=== PATIENT | female | born 1950 | race Caucasian/White ===

== ENCOUNTER → 2019-08-17 10:21 | Outpatient (CLI) | payer MEDICARE, SELFPAY ==
--- NOTE | ~2019-08-17 | MM_ITS ---
EXAMINATION: MM screening candido BI w alfonso HISTORY: Screening mammogram TECHNIQUE: Craniocaudal and mediolateral oblique 3-D tomosynthesis images were obtained and synthetic 2-D images were generated. CAD analysis was submitted and interpreted. COMPARISON: No prior mammogram is available for comparison at this institution. BREAST PARENCHYMAL COMPOSITION: There are scattered areas of fibroglandular density. FINDINGS: There is no evidence of suspicious mass, calcification, or architectural distortion to sugg est malignancy in either breast. There has been no suspicious interval change. IMPRESSION: 1. No mammographic evidence of malignancy. 2. Recommend routine screening mammography in one year. BI-RADS Category 1: Negative Reviewed, dictated and finalized at location A.
== END ==
PROVIDERS: PCP Family Medicine Adolescent Medicine; Visit Provider Family Medicine Adolescent Medicine
DX: Z12.31 Encounter for screening mammogram for malignant neoplasm of breast (principal)
CPT/HCPCS: 77063; 77067

== ENCOUNTER → 2021-09-19 09:08 | Outpatient (CLI) | payer MEDICARE, SELFPAY ==
--- NOTE | ~2021-09-19 | US_ITS ---
EXAMINATION: US right upper quadrant EXAM DATE: 09/19/2021 09:32 INDICATION: Hepatic fibrosis TECHNIQUE: Multiple grayscale and Doppler images of the abdomen right upper quadrant were obtained (b y a technologist who performed the scan) and subsequently reviewed. Comparison is made to prior exami nation from 08/10/2016. FINDINGS: The pancreatic head and body are normal in appearance. The pancreatic tail is not visualized. The l iver has mildly heterogeneous echogenicity and contour. There are no focal liver lesions identified. There is no evidence of intrahepatic biliary duct dilation. Portal venous flow was seen in the he patopedal, normal direction and has normal Doppler waveform. No right-sided hydronephrosis. Common bile duct measures 3 mm, which is normal. The gallbladder wall is normal in thickness, with ex pected amount of distention. No sonographic evidence of pericholecystic fluid. There is cholelithia sis. Technologist performing exam reports patient did not demonstrate sonographic Rodriguez's sign. P nat note that this sign is less reliable in patients who have received pain medication. IMPRESSION: 1. Mildly heterogeneous liver echogenicity without focal mass. 2. Cholelithiasis. Reviewed, dictated and finalized at location A.
== END ==
PROVIDERS: PCP Family Medicine Adolescent Medicine
DX: K74.02 Hepatic fibrosis, advanced fibrosis (principal); K80.20 Calculus of gallbladder without cholecystitis without obstruction
CPT/HCPCS: 76705

== ENCOUNTER → 2021-10-25 10:46 | Outpatient (CLI) | payer MEDICARE, SELFPAY ==
--- NOTE | ~2021-10-25 | DEXA_ITS ---
Bone Density Report Name: RAKESH HURT Age: 71 Sex: Female Ethnicity: White Date of : 1950 Indication: osteopenia; monitoring treatment; height loss; history of glucocorticoids; prior fracture; secondary osteoporosis; postmenopausal Referring Provider: SENDY LUNA Study: Bone densitometry was performed. Exam Date: October 25, 2021 Accession number: [id number] Bone Density: Region BMD T-score Z-score Classification AP Spine (L1-L4) 0.875 -1.6 0.5 Osteopenia Femoral Neck (Left) 0.613 -2.1 -0.4 Osteopenia Total Hip (Left) 0.714 -1.9 -0.4 Osteopenia Femoral Neck (Right) 0.611 -2.1 -0.4 Osteopenia Total Hip (Right) 0.687 -2.1 -0.6 Osteopenia Total Hip Mean 0.701 -2.0 -0.5 Osteopenia World Health Organization criteria for BMD impression classify patients as: Normal (T-score at or above -1.0), Osteopenia (T-score between -1.0 and -2.5), or Osteoporosis (T-score at or below -2.5). 10-year Fracture Risk: FRAX not reported because: Prior hip or vertebral fracture Treated for osteoporosis Previous Exams: Region Exam Age BMD T-score BMD Change BMD Change Date g/cm2 vs Baseline vs Previous AP Spine(L1-L4) 10/25/2021 71 0.875 -1.6 0.031* 0.076* 06/19/2018 68 0.799 -2.3 -0.045* -0.045* 10/01/2016 66 0.845 -1.8 Total Hip(Left) 10/25/2021 71 0.714 -1.9 -0.019 0.018 06/19/2018 68 0.697 -2.0 -0.037* -0.037* 10/01/2016 66 0.733 -1.7 Total Hip(Right) 10/25/2021 71 0.687 -2.1 -0.011 0.005 06/19/2018 68 0.682 -2.1 -0.016 -0.016 10/01/2016 66 0.698 -2.0 *Denotes significance at 95% confidence level, LSC for AP Spine = 0.022 g/cm2, LSC for Total Hip = 0.027 g/cm2 Clinical Information Provided by Patient: Have had a previous hip or vertebral fracture Has had a low trauma fracture Smokes Has taken Glucocorticoids Has secondary osteoporosis Is being treated for osteoporosis Has used the following medications: Fosamax (i.e. alendronate), Vitamin D, Calcium, PREDNESONE Patient maximum height was 64 Menopause Age: 47 No regular weight bearing exercise Drinks caffeinated beverages Onset of menses at age 15 Number of children 3 Impression: The patient has low bone mass, based on the Right Total Hip T-score. The patient has risk factors, including: smoking, previous fracture, history of glucocorticoid therapy. No signif
== END ==
PROVIDERS: PCP Family Medicine Adolescent Medicine; Visit Provider Family Medicine Adolescent Medicine
DX: Z78.0 Asymptomatic menopausal state (principal); M85.88 Other specified disorders of bone density and structure, other site; M85.851 Other specified disorders of bone density and structure, right thigh; M85.852 Other specified disorders of bone density and structure, left thigh
CPT/HCPCS: 77080

== ENCOUNTER → 2022-09-27 10:02 | Outpatient (CLI) | payer MEDICARE, SELFPAY ==
--- NOTE | ~2022-09-27 | US_ITS ---
Limited Abdominal Sonogram: Real-time sonographic imaging of the right upper quadrant was performed. Clinical History: Hepatic fibrosis Findings: Possible minimal nodularity liver contour. No mass lesion or biliary dilatation. Main blane l vein demonstrates normal direction of flow. The gallbladder is well distended, and contains echogen ic, shadowing gallstones. No gallbladder wall thickening. The common bile duct measures 3 mm. The vi sualized pancreas, aorta, and IVC are unremarkable. Right kidney measures 9.6 cm in length, without e vidence for hydronephrosis. Impression: Cholelithiasis. Possible minimal nodularity of the liver contour. Correlate for cirrhotic change. Reviewed, dictated and finalized at location M. Impression: Cholelithiasis. Possible minimal nodularity of the liver contour. Correlate for cirrhotic roa e.
== END ==
PROVIDERS: PCP Family Medicine Adolescent Medicine
DX: K74.02 Hepatic fibrosis, advanced fibrosis (principal); K75.4 Autoimmune hepatitis; K80.20 Calculus of gallbladder without cholecystitis without obstruction
CPT/HCPCS: 76705

== ENCOUNTER 2023-07-06 15:48 | Emergency (ER) | payer MEDICARE, SELFPAY ==
--- NOTE | ~2023-07-06 | XR_ITS ---
EXAM: XR hand LT min 3V DATE: 07/06/2023 16:20 HISTORY: fall, pain, deformity of 5TH finger . COMPARISON: None available. FINDINGS: Decreased mineralization. Comminuted intraarticular fracture of the left proximal fifth ph alange, with one half shaft width anterior displacement, 45 degrees posterior angulation, and minimal medial angulation. Comminuted, nondisplaced, intra-articular fracture of the proximal left phalange. No lytic or blastic lesion. Moderate scattered osteoarthritic changes. No erosion or periosteal hopson ge. Mild soft tissue swelling over the fracture sites. IMPRESSION: Comminuted, intra-articular, displaced and angulated fracture of the proximal left fifth phalange. Nondisplaced, comminuted, intra-articular fracture of the proximal left fourth phalange. Reviewed, dictated and finalized at location K. [employer] IMPRESSION: Comminuted, intra-articular, displaced and angulated fracture of the proximal l eft fifth phalange. Nondisplaced, comminuted, intra-articular fracture of the proximal left fourth phalange.
[2023-07-06 16:00] VITALS: BP 158/67; PULSE 70; RESP 16; TEMP 36.2; O2SAT 100
--- NOTE | 2023-07-06 16:06 | ED.UPPEXIN ---
HPI - Extremity Injury (Upper) General Chief Complaint: Extremity Injury, Upper Stated Complaint: Left Finger Injury Source: patient Mode of arrival: ambulatory Limitations: no limitations History of Present Illness HPI narrative: 73-year-old female presenting for complaint of left hand pain after injury today. She states about 2 hours prior to arrival she fell in the grass landing on the left hand. She states the little finger was bent in a flexed position, which she straightened, applied a splint and an ice pack. Also reports right upper inner arm abrasions and right upper eyelid abrasion. Denies LOC, headache, neck pain. She has taken ibuprofen. Related Data Home Medications Medication Instructions Recorded Confirmed calcium carbonate 500 mg calcium 500 mg PO BID 08/14/21 05/21/23 (1,250 mg) chewable tablet (Calcium 500) cholecalciferol (vitamin D3) 125 125 mcg PO DAILY 08/14/21 05/21/23 mcg (5,000 unit) capsule folic acid 1 mg tablet 1 mg PO DAILY 08/14/21 05/21/23 naproxen 250 mg tablet 250 mg PO ONCE PRN 08/14/21 05/21/23 vitamin B complex 1 tablet PO DAILY 08/14/21 05/21/23 mycophenolate mofetil 500 mg tablet 750 mg PO BID 01/23/23 05/21/23 Allergies Allergy/AdvReac Type Severity Reaction Status Date / Time No Known Allergies Allergy Unknown Verified 05/21/23 08:41 Review of Systems Review of Systems: CONSTITUTIONAL: Denies body aches, fever, chills EYES: Denies visual changes ENT: Denies rhinorrhea, epistaxis CARDIOVASCULAR: Denies chest pain, palpitations, or edema. RESPIRATORY: Denies cough or dyspnea. SKIN: reports abrasion to right arm and eye Denies rash, itching MUSCULOSKELETAL: Reports left hand pain Denies back pain, neck pain, or myalgia. NEUROLOGIC: Denies headache, numbness, tingling, or weakness. All systems reviewed & are unremarkable except as noted in HPI and below PMFSH Past Medical History Medical History Abnormal colonoscopy 10/19 Polyp Repeat 10/24 Burst fracture of lumbar vertebra Compression fracture Surgical History Surgical History H/O foot surgery H/O tubal ligation (~1978) 1979 History of tonsillectomy Family History Family History Father Hypertension Family history of elevated blood lipids Cerebrovascular accident Family history of Alzheimer's disease Mother Hypertension Family history of elevated blood lipids Hemochromatosis Family history of Alzheimer's disease Sibling Lymphoma Family history of elevated blood lipids Family history of lymphoma Daughter Depression Family history of alcoholism Social History Social History Smoking status: Former smoker (Quit in 03/25) Tobacco type: cigarettes Second hand tobacco smoke exposure: No Alcohol intake: never Substance use: never Substance use type: does not use Lack of Transportation: No Lack of Food: Never True Current Housing: I Have Housing Concerned About Future Housing: No Difficulty Paying Gas/Electric Bills: No Difficulty Paying for Meds: No Currently Unemployed: No Education: Bachelor's Degree Difficulty w/ Childcare or Family Care: No Living arrangements: with family Occupation/Education: retired Gender identity (if verbalized by the patient): Female Sexual Orientation (if Verbalized by the Patient): Straight or Heterosexual Spiritual care concerns: No Agree to blood products: Yes Comments At time of signature, I have reviewed and agree with nursing past medical, surgical, social and family history unless otherwise noted. Please see nursing chart for further information. There is no relevant family history pertinent to the presenting complaint Exam Narrative: GENERAL: Well-appearing EYES: Right upper lid superf
== END 2023-07-06 18:10 | disposition home or self-care (01) ==
PROVIDERS: Emergency Provider Nurse Practitioner Family; PCP Family Medicine Adolescent Medicine
DX: S62.645A Nondisplaced fracture of proximal phalanx of left ring finger, initial encounter for closed fracture (principal); S62.617A Displaced fracture of proximal phalanx of left little finger, initial encounter for closed fracture; W19.XXXA Unspecified fall, initial encounter; Z87.891 Personal history of nicotine dependence
CPT/HCPCS: 29125; 73130; 99214; A4565; G0463

== ENCOUNTER 2023-07-11 14:38 | Outpatient (CLI) | payer MEDICARE, SELFPAY ==
--- NOTE | ~2023-07-11 | CT_ITS ---
EXAMINATION: CT UE LT wo con DATE: 07/11/2023 15:07 INDICATION: Fractures of left hand fourth and fifth proximal phalanges. TECHNIQUE: Computed tomography (CT) of the left hand and wrist was performed without intravenous cont rast. Automated exposure control and iterative reconstruction technique were employed. The dose-lengt h product was 671.35 mGy-cm. COMPARISON: Left hand radiographs 07/06/2023 FINDINGS: There is an oblique extra-articular fracture of base of fourth proximal phalanx. The distal fracture fragment demonstrates 1 mm ulnar displacement, impaction, 11 degrees radial angulation, and 8 degrees dorsal angulation. There is a transverse extra-articular fracture of base of fifth proxima l phalanx. The distal fracture fragment demonstrates 1 mm palmar displacement, impaction, 23 degrees dorsal angulation, and 9 degrees radial angulation. There is mild osteoarthritis of triscaphe joint a nd first carpometacarpal joint. There is mild to moderate osteoarthritis of the interphalangeal joint s. IMPRESSION: 1. Oblique extra-articular fracture of base of fourth proximal phalanx. 2. Transverse extra-articular fracture of base of fifth proximal phalanx. Reviewed, dictated and finalized at location E. [employer] TRAIN[employer]
== END 2023-07-11 14:39 | disposition home or self-care (01) ==
PROVIDERS: PCP Family Medicine Adolescent Medicine; Visit Provider Plastic Surgery
DX: S62.618A Displaced fracture of proximal phalanx of other finger, initial encounter for closed fracture (principal); S62.92XA Unspecified fracture of left hand, initial encounter for closed fracture
CPT/HCPCS: 73200

== ENCOUNTER 2023-08-12 12:52 | Outpatient (CLI) | payer MEDICARE, SELFPAY ==
--- NOTE | ~2023-08-12 | XR_ITS ---
EXAMINATION: XR hand LT min 3V DATE: 08/12/2023 13:08 INDICATION: Fractures at the left fourth and fifth proximal phalanges TECHNIQUE: Posteroanterior, oblique and lateral views of the left hand were obtained. COMPARISON: CT dated 07/11/2023 FINDINGS: Again seen are proximal metaphyseal fractures at the base of the fourth and fifth phalanges. No evide nt intra-articular extension. There is 1.5 mm palmar displacement and 15 degrees dorsal angulation of the fifth proximal phalangeal fracture. Negligible displacement of the fourth proximal phalangeal fr acture. Minimal callus formation and some increased sclerosis along the fracture lines consistent wit h interval healing. No new fractures identified. Polyarticular osteoarthritis, moderate severity at t he triscaphe, first carpometacarpal and multiple predominantly distal interphalangeal joints. Mild os teoarthritis at the distal radioulnar, wrist and multiple metacarpophalangeal and remaining interphal angeal joints. IMPRESSION: 1. Healing likely extra articular fracture at the base of the left fourth and fifth proximal phalange s which remain in near anatomic alignment. Reviewed, dictated and finalized at location B. IMPRESSION: 1. Healing likely extra articular fracture at the base of the left fourth and f ifth proximal phalanges which remain in near anatomic alignment.
== END 2023-08-12 12:53 | disposition home or self-care (01) ==
LOC: ANHIMG 12:54
PROVIDERS: PCP Family Medicine Adolescent Medicine; Visit Provider Plastic Surgery
DX: S62.647D Nondisplaced fracture of proximal phalanx of left little finger, subsequent encounter for fracture with routine healing (principal); X58.XXXD Exposure to other specified factors, subsequent encounter
CPT/HCPCS: 73130

== ENCOUNTER 2023-09-30 12:30 | Outpatient (RCR) | payer MEDICARE, SELFPAY ==
--- NOTE | 2023-08-23 11:41 | OTOPEVAL1 ---
Assessment and note entered by Alistair Mccray, CORINNE/Shubham, CHT Evaluation Information 08/23/23 Diagnosis Nondisplaced fracture of proximal phalanx of left little finger Subjective Information Patient fell and fractured her left small finger. She is s/p immobilization and ready to get moving. She presents with reports of stiffness, being unable to make a fist. Difficulties with gripping to open jars and ring out wash cloths. She is a retired RN and right handed. Reported Pain Level Additional Pain Score Comments No pain at rest. Pain increases to 3/10 with use and with ROM. Assessment OT Clinical Summary Patient referred to OT with left hand stiffness following small finger fracture. She presents with residual weakness, stiffness, and pain that limits return to gross gripping tasks during ADLs. Skilled OT indicated to facilitate optimal functional strength and flexibility through use of modalities, therapeutic exercise, manual therapy, and HEP instruction and progression. Plan of Care Interventions Therapeutic Exercise,Manual Therapy,Therapeutic Activities,Hot Pack/Cold Pack,Paraffin OT Services Indicated Yes Treatment Frequency and 1x/week for 6 visits Duration These treatments will address the objective and functional deficits as defined above. The patient will be advanced safely and appropriately in order for the patient to progress towards his/her prior level of function. Additional exercises will be introduced and as well as a comprehensive home exercise program upon discharge, if needed, ?to ensure carryover of functional gains achieved in the clinic. This treatment plan has been reviewed and agreement upon by the patient.
--- NOTE | 2023-08-23 11:42 | OPREHPOC ---
Outpatient Therapy Plan of Care This is a Multidisciplinary Plan of Care that may contain components documented by all disciplines (PT, OT, and ST.) OT Problem 1 OT Problem #1 Knowledge Deficit OT Goal 1 Goal 1. Patient to be independent with instructed materials. Target Visit 6 OT Problem 2 OT Problem #2 Impaired Range of Motion OT Goal 1 Goal 1. Patient to increase active ROM of the left hand as demonstrated by being able to touch all finger tips to the palm when trying to make a fist. Target Visit 6 OT Problem 3 OT Problem #3 Impaired Strength OT Goal 1 Goal 1. Patient to be able to complete gross paper coater and pinch strengthening with yellow putty x5 minutes without reports of pain. Target Visit 6
--- NOTE | 2023-09-11 15:16 | OTOPPROG ---
Assessment and note entered by Alistair Mccray, CORINNE/Shubham, CHT OT Progress Update 09/11/23 Assessment Status Progress Diagnosis Nondisplaced fracture of proximal phalanx of left little finger Subjective Information Patient reports improvements in her ROM, strength, and use. She is now using the left hand to open the fridge, lift and carry items, and is not as tender when bumped. She is now able to ring out a wash cloth and open water bottles. Continues to be unable to touch the finger tips to the palm. Unable to open an jar using the left hand. ROM of digits IV and V on the right hand improved as follows: - IV tip to palm gap improved from 5 cm to 3 cm - V tip to palm gap improved from 5 cm to 2 cm - MCP joints of both fingers are limited at 55 degrees - PIP joints of both fingers improved to 80-85 degrees - DIP joints of both fingers are limited at 50-55 degrees Assessment OT Clinical Summary Patient referred to OT with left hand stiffness following small finger fracture. She has made progress with therapy and continues to demonstrate residual deficit with functional flexion and agriculture worker strength that that limits return to gross gripping tasks during ADLs. Continued skilled OT indicated to facilitate optimal functional strength and flexibility through use of modalities , therapeutic exercise, manual therapy, and HEP instruction and progression. Plan of Care Interventions Therapeutic Exercise,Manual Therapy,Therapeutic Activities,Hot Pack/Cold Pack,Paraffin OT Services Indicated Yes Treatment Frequency and 1x/week for 3 visits Duration These treatments will address the objective and functional deficits as defined above. The patient will be advanced safely and appropriately in order for the patient to progress towards his/her prior level of function. Additional exercises will be introduced and as well as a comprehensive home exercise program upon discharge, if needed, ?to ensure carryover of functional gains achieved in the clinic. This treatment plan has been reviewed and agreement upon by the patient.
--- NOTE | 2023-09-30 13:05 | OTOPDC ---
Assessment and note entered by Alistair Mccray, OTR/L, ROBT OT D/C Summary 09/30/23 Assessment Status Discharge Diagnosis Nondisplaced fracture of proximal phalanx of left little finger Subjective Information Patient reports improvements in her ROM, strength, and use, but overall verbalizes that she is discouraged with her progress. She is using her left hand for light everyday tasks, but reports limitations with anything that requires strength such as opening jars. She continues to report some burning pain in her palm and this is intermittent and not necessarily activity dependent. Feels it come on when she's laying in bed. It does not wake her up through the night. ROM of digits IV and V on the right hand improved as follows: - IV tip to palm gap improved from 5 cm to 2 cm - V tip to palm gap improved from 5 cm to 2 cm - Passively the ring and small fingers are able to achieve a composite fist - IV tip to DPC measures 2 cm gap - V tip to DPC measures 2 cm gap - Passively the ring and small fingers are 1 cm away from DPC Assessment OT Clinical Summary Patient referred to OT with left hand stiffness following small finger fracture. She has made slow and steady progress with ROM and strength of the left hand. At this time her passive ROM is WFL and she is independent with ROM and strengthening HEP . She reports she is ready to be discharged and to work on her HEP independently. No further skilled OT indicated at this time. Plan of Care OT Services Indicated No
== END 2023-09-30 13:50 | disposition home or self-care (01) ==
LOC: ANHOT 12:30
PROVIDERS: PCP Family Medicine Adolescent Medicine; Visit Provider Plastic Surgery
DX: S62.647D Nondisplaced fracture of proximal phalanx of left little finger, subsequent encounter for fracture with routine healing (principal)
CPT/HCPCS: 97018; 97110; 97140; 97165

== ENCOUNTER 2023-10-01 08:06 | Outpatient (CLI) | payer OTHER, SELFPAY ==
--- NOTE | ~2023-10-01 | US_ITS ---
US right upper quadrant INDICATION: Hepatitis PROCEDURE: Realtime right upper abdominal ultrasound. COMPARISON: No prior studies for comparison. FINDINGS: The pancreas is normal without focal mass or pancreatic ductal dilation. Liver echotexture is increased, consistent with fatty infiltration. There is normal directional flow in the portal ve in. There are gallstones. Common bile duct measures 3 mm. No sonographic Rodriguez's sign. IMPRESSION: 1: Cholelithiasis. 2: Fatty infiltration of the liver. Reviewed, dictated and finalized at location B.
== END 2023-10-01 08:07 ==
PROVIDERS: PCP Internal Medicine Gastroenterology; Visit Provider Internal Medicine Gastroenterology
DX: K75.4 Autoimmune hepatitis (principal); K74.02 Hepatic fibrosis, advanced fibrosis; K80.20 Calculus of gallbladder without cholecystitis without obstruction; K76.0 Fatty (change of) liver, not elsewhere classified
CPT/HCPCS: 76705

== ENCOUNTER 2024-09-23 09:35 | Outpatient (CLI) | payer MEDICARE, SELFPAY ==
--- NOTE | ~2024-09-23 | US_ITS ---
Limited Abdominal Sonogram: Real-time sonographic imaging of the right upper quadrant was performed. Clinical History: Autoimmune hepatitis Findings: The liver appears mildly heterogeneous with no evidence of mass lesion or bile duct dilata tion. Main portal vein demonstrates normal direction of flow. The gallbladder is well distended, and there is echogenic shadowing gallstones. No gallbladder wall thickening. The common bile duct measure s 3 mm. The visualized pancreas, aorta, and IVC are unremarkable. Impression: Cholelithiasis. Mild heterogeneous hepatic echotexture could reflect nonspecific chronic liver disease. Reviewed, dictated and finalized at location . Impression: Cholelithiasis. Mild heterogeneous hepatic echotexture could reflect nonspecific chronic liver disease.
== END 2024-09-23 09:36 | disposition home or self-care (01) ==
PROVIDERS: PCP Family Medicine Adolescent Medicine; Visit Provider Internal Medicine Gastroenterology
DX: K80.20 Calculus of gallbladder without cholecystitis without obstruction (principal); K75.4 Autoimmune hepatitis; K74.60 Unspecified cirrhosis of liver
CPT/HCPCS: 76705